=== PATIENT | female | born 1985 | race Caucasian/White ===

== ENCOUNTER 2017-03-15 10:50 | Inpatient (IN) | payer BC, OTHER ==
[~2017-03-15] VITALS: Ht 170.2 cm; Wt 104.3 kg
[2017-03-15] MEDS ORDERED: ONDANSETRON 4 MG/2 ML VIAL IM PRN (15:00)
[2017-03-15] MEDS ORDERED: DICYCLOMINE HCL 20 MG TABLET PO PRN (15:00)
[2017-03-15] MEDS ORDERED: HYDROXYZINE PAMOATE 25 MG CAPSULE PO PRN (15:00)
[2017-03-15] MEDS ORDERED: LOPERAMIDE HCL 2 MG CAPSULE PO PRN ×2 (15:00)
[2017-03-15] MEDS ORDERED: BUPRENORPHINE HCL 2 MG TAB.SUBL SL PRN (15:00)
[2017-03-15] MEDS ORDERED: IBUPROFEN 600 MG TABLET PO PRN (15:00)
[2017-03-15] MEDS ORDERED: LORAZEPAM 1 MG TABLET PO PRN (15:00)
[2017-03-15] MEDS ORDERED: MAGNESIUM HYDROXIDE 30 ML LIQUID UDC PO PRN (15:00)
[2017-03-15] MEDS ORDERED: ONDANSETRON ODT 4 MG TAB.RAPDIS SL PRN (15:00)
[2017-03-15] MEDS ORDERED: MIRALAX 17 GM POWD.PACK PO PRN (15:00)
[2017-03-15] MEDS ORDERED: diphenhydrAMINE 50 MG CAPSULE PO PRN (15:00)
[2017-03-15] MEDS ORDERED: ACETAMINOPHEN 325 MG TABLET PO PRN (15:00)
[2017-03-15] MEDS ORDERED: METHOCARBAMOL 750 MG TABLET PO PRN (15:00)
[2017-03-15] MEDS ORDERED: MAG HYDROX/AL HYDROX/SIMETH 30 ML LIQUID UDC PO PRN (15:00)
--- NOTE | 2017-03-15 15:30 | NUR ---
Intake Assessment; Patient is a 31 year old female presented to [facility] to detoxify from Heroin and Methamphetamine. Patient flew in from [place] and arrived at intake office at approximately 1500. Patient appears agitated and irritable. Patient has a flat affect and somewhat cooperative. Patient denies any allergies or history of seizures. Educated patient regarding unit protocols and policies. Will continue with further assessment when patient is up on the unit.
--- NOTE | 2017-03-15 16:00 | NUR ---
Admission note; Patient is a 31 year old female presented to [facility] to detoxify from Heroin and Methamphetamine. Patient flew in from [place] and arrived at intake office at approximately 1500. Patient appears agitated and irritable. Patient has a flat affect and somewhat cooperative. Patient denies any allergies or history of seizures. Educated patient regarding unit protocols and policies. Will continue with further assessment when patient is up on the unit. Patient is the primary source of information. Patient is admitted under the care of Dr. Alas to room 311. Admitting vital signs are as follows; 138/98, HR 98, Temperature of 98.2, respirations 18, SPO2 95% on room air, denies any pain, weight of 230lbs and height of 57. Educated patient regarding the importance of providing urine for urine drug screen, patient verbalized understanding. Discussed substance use history. Patient started using Heroin when she was 28 years old, patient unable to specify amount being used on a daily basis. Patient stated "I really don't know how many grams but I used a lot". Patient last used Heroin approximately 3-5 days ago. Patient started using methamphetamine starting December 2016, patient uses 2 grams /daily , last used on 03/14/17. Discussed medical and psych history. Patient reported that she was diagnosed with hypertension but was not treated. Patient recently had abscess I&D procedure on right foot, scab noted on right foot, site is dry and intact. Patient denies psychiatric disorders. During nursing assessment, patient avoids eye contact and unforthcoming with amount of substance use. Patient has been to treatment centers before ( [facility] and [facility] summer treatment). Patient does not have a primary care physician. Patient's current COWS score is 4. Skin check done with no significant findings. Safety measures in place. MD notified. Patient oriented to unit by RESEARCH STATISTICIAN. Will continue to monitor patient.
--- NOTE | 2017-03-15 18:25 | NUR ---
End of shift note; Patient is AOX4. Patient has not provided urine for UDS , educated patient regarding the importance of compliance to treatment and unit protocols, verbalized understanding. Encouraged patient to increase fluid intake, verbalized understanding. All safety measures secured. Met all needs.
--- NOTE | 2017-03-15 19:30 | NUR ---
START OF SHIFT Patient is a 31 year old female admitted for Heroin and Methamphetamine dependency. Patient denies history of seizures.A/O X 3 ,full code,regular diet,NKA.Patient's last COWS score = 4. Skin check done with no significant findings.PMH of HTN. Pt received resting in bed.Urine specimen provided and sent to lab for testing.Pt denies any s/s of withdrawals at this time.She did c/o anxiety.PRN meds offered but she is declining at this time,said "I feel anxious all the time". All safety measures in place;Bed is in low position and locked, side rails up x2, call light within reach. Will continue to monitor.
[2017-03-15 20:00] VITALS: BP 160/113
[2017-03-15 20:22] LABS: *URINE HCG, QUAL NEGATIVE (NEGATIVE)
[2017-03-15 20:34] LABS: *AMPHETAMINE, URINE POSITIVE (NEGATIVE); *BARBITURATE, URINE NEGATIVE (NEGATIVE); *CANNABINOID, URINE NEGATIVE (NEGATIVE); *COCCAINE, URINE NEGATIVE (NEGATIVE); *OPIATE, URINE POSITIVE (NEGATIVE); *PHENCYCLIDINE SCREEN,URINE NEGATIVE (NEGATIVE)
[2017-03-15] MEDS: CLONIDINE HCL 0.1 MG TABLET PO PRN ×2 (20:47→20:49)
[2017-03-15] MEDS ORDERED: CLONIDINE HCL 0.1 MG TABLET ONE (20:49)
--- NOTE | 2017-03-15 20:50 | NUR ---
PRN CLONIDINE GIVEN ORDERED FOR B/P OF 160/113.WILL MONITOR FOR EFFECTIVENESS.
--- NOTE | 2017-03-15 21:50 | NUR ---
B/P RECHECKED.B/P=121/82;HR=72.
[2017-03-15 23:08] LABS: EOSINOPHILS # (AUTO) 0.1 K/uL (0.0-0.7); EOSINOPHILS % (AUTO) 1.1 % (0.0-7.0)
[2017-03-15 23:14] LABS: BASOPHILS % (AUTO) 0.6 % (0.0-2.0); HEMOGLOBIN 12.3 G/DL (12.0-16.0); LYMPHOCYTES # (AUTO) 2.8 K/UL (0.8-4.8); LYMPHOCYTES % (AUTO) 36.1 % (20.5-51.5); MEAN CORPUSCULAR HEMOGLOBIN 23.7 UUG (27.0-31.0); MEAN CORPUSCULAR HGB CONC 32 g/dL (32.0-37.0); MEAN CORPUSCULAR VOLUME 74.9 FL (81.0-99.0); MONOCYTES # (AUTO) 0.6 K/UL (0.1-1.30); MONOCYTES % (AUTO) 7.9 % (0.0-11.0); NEUTROPHILS # (AUTO) 4.4 K/UL (1.8-8.9); NEUTROPHILS % (AUTO) 54.3 % (38.5-71.5); PLATELET COUNT (AUTO) 279 K/UL (150-450); RED BLOOD CELL COUNT(AUTO) 5.21 MIL/UL (4.2-5.4); WHITE BLOOD COUNT (AUTO) 7.9 K/UL (4.0-11.2)
[2017-03-15 23:29] LABS: THYROID STIMULATING HORMONE 2.059 mIU/mL (0.358-3.740)
[2017-03-16] VITALS: BP 132/86
[2017-03-16 00:02] LABS: ALANINE AMINOTRANSFERASE 36 U/L (14-59); ALKALINE PHOSPHATASE 53 U/L (50-136); ASPARTATE AMINOTRANSFERASE 44 U/L (15-37); CARBON DIOXIDE 29 mmol/L (21-32); CHLORIDE 101 mmol/L (98-107); CREATININE 0.8 mg/dL (0.6-1.3); GLUCOSE 107 mg/dL (74-106); MAGNESIUM 1.6 mg/dL (1.8-2.4); TOTAL PROTEIN, SERUM 7.7 g/dL (6.4-8.2); UREA NITROGEN, BLOOD 12 mg/dL (7-18)
[2017-03-16 00:16] LABS: ETHANOL < 3 MG/DL (0-0)
[2017-03-16 00:17] LABS: POTASSIUM 2.4 mmol/L (3.5-5.1)
[2017-03-16] MEDS ORDERED: POTASSIUM CHLORIDE 20 MEQ TAB.PRT.SR PO ONE ×4 (00:30→21:00)
[2017-03-16] MEDS ORDERED: MAGNESIUM OXIDE 400 MG TABLET PO ONE ×2 (00:30→21:00)
--- NOTE | 2017-03-16 00:35 | NUR ---
RECEIVED CRITICALLY LOW POTASSIUM LAB VALUE AT 2.4 AND LOW MAGNESIUM LEVEL OF 1.6; NOTIFIED.NEW ORDERS NOTED AND CARRIED OUT.
[2017-03-16 04:00] VITALS: BP 112/67
--- NOTE | 2017-03-16 06:39 | NUR ---
END OF SHIFT Patient is a 31 year old female admitted for Heroin and Methamphetamine dependency. Patient denies history of seizures.A/O X 3 ,full code,regular diet,NKA.Patient's last COWS score = 1. PMH of HTN.PRN Clonidine was given for elevated B/P and it was effective.Potassium and Magnesium were given due to low levels.Pt denies any s/s of withdrawals at this time.She did c/o anxiety.PRN meds offered but she refused to take any.Pt slept 6 hrs hrs,fluid intake was 500 mls;voided x 2 . All safety measures in place;Bed is in low position and locked, side rails up x2, call light within reach. Will continue to monitor.
--- NOTE | 2017-03-16 07:00 | NUR ---
Start of Shift Notes: Received patient in her room. Alert and oriented x 4. Verbally responsive. Able to make needs known. Respirations even and unlabored. No SOB noted. Skin warm and dry to touch. Abdomen soft and non-distended with (+) BS in all 4 quadrants. No complains of N/V/D or constipation noted. Bladder non-distended. NO complains of dysuria. Ambulatory ad opal with steady gait. Patient is a 31 year old female admitted for opiate and methamphetamine dependence. Prior to admission, patient was using heroin "unknown amount" of heroin and 2 grams of methamphetamine daily. Placed on PRNs at this time. Has past medical hx of HTN and right foot abscess. Educated patient on her current plan of care for the day and her medication regimen. Encouraged oral fluid intake and encouraged group participation to learn new skills to prevent relapse. All needs met and attended. WIll continue to monitor closely.
[2017-03-16 08:00] VITALS: BP 129/86
[2017-03-16] MEDS: MULTIVITAMINS,THERAPEUTIC TABLET PO SCH (08:31)
--- NOTE | 2017-03-16 08:37 | NUR ---
COWS 2: COWS 2. Patient denies any complains of chills, hot flashes, anxiety, muscle aches and pains as well as restlessness.
[2017-03-16 08:57] LABS: CREATININE 0.7 mg/dL (0.6-1.3); MAGNESIUM 1.8 mg/dL (1.8-2.4)
[2017-03-16] MEDS ORDERED: TUBERCULIN,PURIF.PROT.DERIV. 5 TU/0.1 ML TEST ID ONE (09:00)
--- NOTE | 2017-03-16 09:39 | NUR ---
Therapist prompted client about group times. Client reported she probably won't go today because she does not feel well.
--- NOTE | 2017-03-16 10:00 | NUR ---
Potassium level: Patient's potassium level 3.0L. Notified MD. Medicated patient with KCL 40 mEq as ordered. No s/s of hypokalemia noted.
[2017-03-16 12:00] VITALS: BP 137/81
[2017-03-16 16:00] VITALS: BP 137/81
[2017-03-16] MEDS: buPROPion XL 150 MG TAB.SR.24H PO SCH (16:04)
--- NOTE | 2017-03-16 18:52 | NUR ---
End of Shift Notes: Patient continues to be on close monitoring for opiate and methamphetamine withdrawal. Continues to be on PRN for symptom management. VS monitored closely q 4 hours. No significant abnormalities noted. BP monitored closely due to hx of HTN. No s/s of hypo/HTN noted. Withdrawal symptoms monitored q 4 hours. Initial COWS 2, last COWS 2. Patient requires encouragement to participate in group and therapy sessions. Affect is flat and requires encouragement to socialize with her peers. Potassium 3.0L, notified MD and medicated patient with KcL 40 mEq PO as ordered. No s/s of hypokalemia noted. Compliant with care and treatment. Safety precautions in place. All needs met and attended. Will continue to monitor closely.
[2017-03-16 20:00] VITALS: BP 143/90
--- NOTE | 2017-03-16 20:00 | NUR ---
1999 Patient received awake and lying quietly in her bed watching television. Patient responds to nurse's greeting and introduction with a flat-inflected, " Hello, I'm okay I guess. I'm thinking a lot about stuff". Patient is oriented to person, place, day, date and her personal situation. Reoriented to time. Patient's color is pink and her skin is warm, very slightly moist and intact. Lung sounds are clear, though slightly diminished in bases bilaterally and active bowel sounds are noted X 4 abdominal Quads, per auscultation. Vital signs are: 97.9-90-16 143/90, O2 Sat 98%, COWS 3. Patient states that she has not attended any [facility] groups yet and that she will do that when her clean clothes are delivered back to her tomorrow, here on [facility] floor. Patient offers no requests or c/o of anything specific, however she talks to nurse extensively about her boyfriend, her addiction, her anxiety and "all kinds of thoughts that are going through my head". Patient allowed to ventilate her feelings and calm reassurances and positive encouragement given to her as needed. Patient states that she has just been resting in her room, but she has been eating her regular diet trays and taking fluids ad opal since her admission. Patient was admitted on 03/15/17 for Heroin and Methamphetamine withdrawal and she is currently on PRN medications only for withdrawal symptoms. Bed is locked and in lowest position, bed rails are up X 1 and call light within patient's easy reach.
[2017-03-16] MEDS: QUETIAPINE FUMARATE 200 MG TABLET PO SCH (21:05)
--- NOTE | 2017-03-16 21:06 | NUR ---
PRN MEDICATIONS: Prn Immodium 4 mg p.o. given per c/o non-observed loose stools. Patient states, " I don't know why I had those earlier". Prn Vistaril 50 mg p.o. given per c/o "lots of anxiety and thinking about everything". Prn Motrin 600 mg p.o. given per c/o "body aches and pains, maybe a 4 or 5" ( 1/10 pain scale).
--- NOTE | 2017-03-16 21:07 | NUR ---
PRN MEDICATION: Prn Zofran 0.4 mg SL given per c/o " maybe feeling some nausea now".
--- NOTE | 2017-03-16 22:07 | NUR ---
REASSESSMENT PRN MEDICATIONS: Patient is sleeping in -like position of comfort, with eyes closed and respirations quiet, even, unlabored at 12.
--- NOTE | 2017-03-17 | NUR ---
Patient refused to be awakened for V/S to be done at this time.
[2017-03-17 04:00] VITALS: BP 138/89
--- NOTE | 2017-03-17 04:00 | NUR ---
V/S are: 97.7-86-12 138/89 O2 Sat 98%, COWS 2.
--- NOTE | 2017-03-17 06:30 | NUR ---
0630 Patient slept a total of 6.5 hours and she had 2 voids and 3 stools. Total intake p.o. was 1,210 ml . Prn medications given noted separately per floor protocol. V/SS afebrile, last COWS 2 at 0400. Patient is presently sleeping soundly with eyes closed and respirations quiet, even, unlabored at 14.
--- NOTE | 2017-03-17 07:33 | NUR ---
Start of shift note; Received report from restaurant shift leader. Patient is a 31 year old female admitted on 03/15/17 for Opiate/Methamphetamine dependence. Patient is currently on PRN medications. Patient reported history of hypertension. Patient's last COWS score is 2 per night nurse endorsement. Patient slept for 6 hours. Patient's potassium was supplemented yesterday. Will continue to monitor patient.
[2017-03-17 08:00] VITALS: BP 95/55
[2017-03-17 08:13] LABS: CREATININE 0.7 mg/dL (0.6-1.3); PHOSPHOROUS 4.1 mg/dL (2.5-4.9); POTASSIUM 3.3 mmol/L (3.5-5.1)
[2017-03-17] MEDS: MULTIVITAMINS,THERAPEUTIC TABLET PO SCH (08:43)
[2017-03-17] MEDS: buPROPion XL 150 MG TAB.SR.24H PO SCH (08:43)
[2017-03-17] MEDS: POTASSIUM CHLORIDE 20 MEQ TAB.PRT.SR PO SCH ×2 (10:41→20:53)
--- NOTE | 2017-03-17 10:47 | NUR ---
Potassium supplement; Patient's Potassium level is 3.3, MD order potassium supplement 40meq, medication given as ordered. Will continue to monitor patient.
[2017-03-17 12:00] VITALS: BP 111/64
[2017-03-17 12:08] LABS: HEPATITIS B SURFACE AG Negative (Negative)
[2017-03-17] MEDS ORDERED: BUPR-96 PO (14:08)
[2017-03-17] MEDS ORDERED: MUPI22OI2 NS (14:09)
[2017-03-17] MEDS ORDERED: HYDR-3895 PO (14:09)
[2017-03-17] MEDS ORDERED: IBUP-1955 PO (14:09)
[2017-03-17] MEDS ORDERED: METH-406 PO (14:09)
[2017-03-17] MEDS ORDERED: QUET200T PO (14:09)
[2017-03-17] MEDS ORDERED: DICY20TA28 PO (14:09)
--- NOTE | 2017-03-17 14:10 | NUR ---
MD communication; MD notified of patient's Hep C antibodies result and MRSA nares results. MD ordered isolation precautions and Bactroban 2% ointment on both nares Q12H. Patient was educated by MD regarding MRSA and Hep C. Isolation precautions observed.
[2017-03-17] MEDS: MUPIROCIN 2% OINT 22 GM TUBE NS SCH ×2 (14:15→20:54)
[2017-03-17 16:00] VITALS: BP 136/87
--- NOTE | 2017-03-17 18:12 | NUR ---
End of shift note; Patient is AOX4. Patient remained compliant with treatment plan and medication regime. Patient's last COWS score is 2. Isolation precaution observed due to MRSA nares. Potassium was supplemented. Patient's vital signs remained within normal limits. No PRN medications given. Patient is on fall precautions. Bed in lowest position, call light within reach. Met all needs.
--- NOTE | 2017-03-17 18:12 | NUR ---
START OF SHIFT NOTE: Patient endorsed by day shift nurse. Report received. Patient is a 31 year old female admitted to [facility] on under the care of Doctor Evette, Terrell Zarate MD for Opioid and Methamphetamine dependence, placed on PRN' s. Patient tolerated well. Patient remains compliant with treatment, medications, and diet regime. Patient reports NKA. Patient placed on Full Code, Regular Diet, Isolation for MRSA's nares and Fall Precautions. Patients denies Seizures Hx r/t withdrawal from substances. COWS 7. The patient presented with anxiety, agitation, nervousness, tremors, diaphoresis, abdominal cramps, restless legs, headache, body aches, insomnia and fatigue. Patient denies SI/HI. Patient reports the following substances use: Heroin IV: Patient reports taking "unknown amount" every day since 2013". Last use "unknown amount" on 03/14/17". Methamphetamine: "26 grams every day since December,". Last use "26 grams on 03/14/17". Patient reports treatment history: "[facility]" and "[facility]". Past Medical History: Anxiety, Depression, HTN, Right Foot abscess (dry and intact with scab), Substance Abuse. Upon endorsement, patient is in his room AOx4, ambulatory with steady gate, stable, speech is soft and clear. VSWNL. Respirations unlabored and even. Lungs Sounds are clear bilaterally. Bowel Sounds active in all x4 quadrants. Last Bowel Movement was "03/17/17 at 1800". Skin is warm and dry to touch. Patient has Right foot healed, dry, not open abscesses. Encouraged fluids as tolerated. Patient verbalized understanding. Safety measures on place. Call light within reach, bed in lowest position and locked, padded rails up bilaterally rails up bilaterally. Will continue to monitor closely.
[2017-03-17 20:00] VITALS: BP 106/67
[2017-03-17] MEDS: QUETIAPINE FUMARATE 200 MG TABLET PO SCH (20:54)
[2017-03-18] VITALS (7 sets, daily range): BP systolic 110–160; BP diastolic 54–102
[2017-03-18] MEDS ORDERED: diphenhydrAMINE 25 MG CAP PO PRN ×2 (00:30)
--- NOTE | 2017-03-18 00:33 | NUR ---
PRN BENADRYL PO ADMINISTRATION Patient c/o insomnia. Patient was assessed. VS WNL. PRN Benadryl PO was discussed. Patient educated for actions, adverse reactions and side effects of Benadryl. Patient returned back his knowledge by verbalizing understanding. PRN Benadryl 50 mg 1 caps. PO administrated as ordered with full glass of water. Patient tolerated well. Will reassessing in one hour. All needs met. Safety measures on the place: Call light within reach, bed is low position, and locked, side rails up x2. Will continue to monitor closely.
[2017-03-18] MEDS ORDERED: diphenhydrAMINE 50 MG CAPSULE ONE (00:40)
--- NOTE | 2017-03-18 01:33 | NUR ---
RE-ASSESSMENT Patient is sleeping. RR 14. Respirations are even and unlabored. PRN Benadryl PO was effective. All needs met. Safety measures on the place: Call light within reach, bed is low position, and locked, side rails up x2. Will continue to monitor closely.
--- NOTE | 2017-03-18 06:55 | NUR ---
END OF SHIFT NOTE: Patient endorsed to day shift nurse in stable condition. Report given. Patient is a 31 year old female admitted to [facility] on 03/15/2017 under the care of Doctor Evette, Terrell Zarate MD for Opioid and Methamphetamine dependence, placed on PRN' s. Patient tolerated well. Patient remains compliant with treatment, medications, and diet regime. Patient reports NKA. Patient placed on Full Code, Regular Diet, Isolation for MRSA's nares and Fall Precautions. Patients denies Seizures Hx r/t withdrawal from substances. Past Medical History: Anxiety, Depression, HTN, Right Foot abscess (dry and intact with scab), Substance Abuse: Heroin and Methamphetamine. Last COWS 2 at 0400. During lieutenant shift supervisor patient presented with anxiety, agitation, nervousness, tremors, diaphoresis, abdominal cramps, restless legs, headache, body aches, insomnia and fatigue. Patient denies SI/HI. VS at 0400: T: 98'2; BP: 125/81; HR: 79; RR: 20; O2 SAT: 96%, pain level:"0/10". Respirations unlabored and even. Skin is warm and dry to touch. Patient has Right foot healed, dry, not open abscesses. Encouraged fluids as tolerated. PRN Motrin PO and PRN Benadryl PO were effective. Patient slept 6 hours 45 minutes, intake 1,861 ml, voided x3. Safety measures on place. Call light within reach, bed in lowest position and locked, padded rails up bilaterally rails up bilaterally.
--- NOTE | 2017-03-18 07:00 | NUR ---
Start of Shift Notes: Received patient in her room. Alert and oriented x 4. Verbally responsive. Able to make needs known. Respirations even and unlabored. No SOB noted. Skin warm and dry to touch. Abdomen soft and non-distended with (+) BS in all 4 quadrants. No complains of N/V/D or constipation noted. Bladder non-distended. NO complains of dysuria. Ambulatory ad opal with steady gait. Patient is a 31 year old female admitted for opiate and methamphetamine dependence. Prior to admission, patient was using heroin "unknown amount" of heroin and 2 grams of methamphetamine daily. Placed on PRNs at this time. Has past medical hx of HTN and right foot abscess. On contact isolation due to MRSA nares. Isolation precautions in place. Educated patient on her current plan of care for the day and her medication regimen. Encouraged oral fluid intake and encouraged group participation to learn new skills to prevent relapse. All needs met and attended. WIll continue to monitor closely.
[2017-03-18 08:24] LABS: CREATININE 0.7 mg/dL (0.6-1.3); POTASSIUM 3.7 mmol/L (3.5-5.1)
[2017-03-18] MEDS: CLONIDINE HCL 0.1 MG TABLET PO PRN (08:47)
[2017-03-18] MEDS: MULTIVITAMINS,THERAPEUTIC TABLET PO SCH (08:47)
[2017-03-18] MEDS: buPROPion XL 150 MG TAB.SR.24H PO SCH (08:47)
[2017-03-18] MEDS: MUPIROCIN 2% OINT 22 GM TUBE NS SCH ×2 (08:47→21:00)
--- NOTE | 2017-03-18 08:47 | NUR ---
Clonidine 0.1mg PO given: Patient's BP 160/102, Pulse 70. BP taken on left arm while patient is at rest. Denies any complains of headache, dizziness, blurred vision nor chest discomfort or pain. Patient states "I feel OK." Medicated patient with Clonidine 0.1mg PO as ordered for elevated BP. Encouraged relaxation techniques. Safety environment in place.
--- NOTE | 2017-03-18 09:47 | NUR ---
Re-assessment: Patient's BP 144/82, Pulse 73. BP taken on left arm while patient is at rest. Denies any complains of headache, dizziness, blurred vision nor chest discomfort or pain. Patient states "I feel OK." PRN Clonidine was effective in reducing patient's BP. Encouraged relaxation techniques. Safety environment in place.
[2017-03-18] MEDS ORDERED: POTASSIUM CHLORIDE 10 MEQ CAPSULE.SA PO ONE (11:00)
--- NOTE | 2017-03-18 11:12 | NUR ---
KcL 30 meQ po given: Patient's K level 3.7. Verified with MD Alas that patient is to receive another 30 mEq PO as ordered. No s/s of hypo/hyperkalemia noted.
[2017-03-18 14:04] LABS: *AMPHETAMINE, URINE NEGATIVE (NEGATIVE); *BARBITURATE, URINE NEGATIVE (NEGATIVE); *CANNABINOID, URINE NEGATIVE (NEGATIVE); *COCCAINE, URINE NEGATIVE (NEGATIVE); *OPIATE, URINE NEGATIVE (NEGATIVE); *PHENCYCLIDINE SCREEN,URINE NEGATIVE (NEGATIVE)
--- NOTE | 2017-03-18 18:51 | NUR ---
START OF SHIFT NOTE: Patient endorsed by day shift nurse. Report received. Patient is a 31 year old female, admitted to [facility] on 03/15/17 for Opioid and Methamphetamine dependence under the care of Terrell Dumont MD, and continue PRN Medications for symptoms management. Patient tolerated well without ASE. Patient remains complains with treatment plan, medications, and diet regime. Patient reports NKA. Patient placed on Full Code, Regular Diet, Isolation for MRSA's nares and Fall Precautions. Patients denies Seizures Hx r/t withdrawal from substances. Past Medical History: Anxiety, Depression, HTN, Right Foot abscess (dry and intact with scab), Substance Abuse: Heroin and Methamphetamine. Upon endorsement patient in the room alert and oriented x4, speech is soft. Patient is cooperative. Last COWS 1 at 1900. Patient presented with mild anxiety. Patient denies SI/HI. VS WNL. Respirations unlabored and even. Patient denies SOB and chest pain. Lungs Sounds are clear thoroughly. Bowel Sounds active in all four quadrants. Skin is warm and dry to touch. Patient has Right foot healed, dry, not open abscesses. Encouraged fluids as tolerated. Patient attended groups activities. Patient scheduled discharging tomorrow by Terrell Dumont MD's order. UDS labs results placed in chart. All needs met. Safety measures on place. Call light within reach, bed in lowest position and locked, padded rails up bilaterally rails up bilaterally. Will continue to monitor closely.
--- NOTE | 2017-03-18 18:51 | NUR ---
End of Shift Notes: Patient continues to be on close monitoring for opiate and methamphetamine withdrawal. Continues to be on PRN for symptom management. VS monitored closely q 4 hours. No significant abnormalities noted. BP monitored closely due to hx of HTN. No s/s of hypo/HTN noted. Medicated patient with Clonidine 0.1mg PO at 0847 due to elevated BP with effect after 1 hour. Denies any complains of chest pain or discomfort noted. Withdrawal symptoms monitored q 4 hours. Initial COWS 1, last COWS 1 due to anxiety. Continues to be on contact isolation due to MRSA of the nares. Compliant with care. No runny nose, cough or congestion noted. Additional KcL 30 mEq PO as ordered. No s/s of hypokalemia/hyperkalemia noted. Patient with discharge plans tomorrow. UDS in and resulted. Compliant with care and treatment. Safety precautions in place. All needs met and attended. Will continue to monitor closely.
[2017-03-18] MEDS: QUETIAPINE FUMARATE 200 MG TABLET PO SCH (21:00)
[2017-03-19] VITALS: BP 122/77
[2017-03-19 04:00] VITALS: BP 112/68
--- NOTE | 2017-03-19 06:54 | NUR ---
END OF SHIFT NOTE: Patient endorsed to day shift nurse in stable condition. Report given. Patient is a 31 year old female admitted to [facility] on 03/15/2017 under the care of Terrell Dumont MD for Opioid and Methamphetamine dependence, placed on PRN' s for symptoms management. Patient remains compliant with treatment, medications, and diet regime. Patient reports NKA. Patient placed on Full Code, Regular Diet, Isolation for MRSA's nares and Fall Precautions. Patients denies Seizures Hx r/t withdrawal from substances. Past Medical History: Anxiety, Depression, HTN, Right Foot abscess (dry and intact with scab), Substance Abuse: Heroin and Methamphetamine. Last COWS 1 at 0400. Patient denies SI/HI. VS at 0400: T: 97.8; BP: 112/68; HR: 72; RR: 18; O2 SAT: 98%, pain level:"0/10". Respirations unlabored and even. Skin is warm and dry to touch. Patient has Right foot healed, dry, not open abscesses. Encouraged fluids as tolerated. Patient scheduled discharging today, on 03/19/2017 per Doctor Terrell Alas MD's order. UDS labs results placed in chart. Patient slept 8 hours, intake 1,147 ml, voided x2. All needs met. Safety measures on place. Call light within reach, bed in lowest position and locked, padded rails up bilaterally rails up bilaterally.
--- NOTE | 2017-03-19 07:19 | NUR ---
Start of shift note; Received report from caustic cresylate shift superintendent. Patient is a 31 year old female admitted on 03/15/17 for Opiate/Methamphetamine dependence. Patient is currently on PRN medications. Patient reported history of hypertension. Patient's last COWS score is 1 per night nurse endorsement. Patient slept for 5 hours. Patient's potassium was supplemented, current Potassium level is 3.7. Patient is scheduled for discharge today. Will continue to monitor patient.
[2017-03-19] MEDS: MUPIROCIN 2% OINT 22 GM TUBE NS SCH (08:07)
[2017-03-19] MEDS: buPROPion XL 150 MG TAB.SR.24H PO SCH (08:07)
[2017-03-19] MEDS: MULTIVITAMINS,THERAPEUTIC TABLET PO SCH (08:07)
[2017-03-19 08:48] VITALS: BP 101/60
--- NOTE | 2017-03-19 09:11 | NUR ---
Discharge note; Patient is AOX4. Patient is medically cleared for discharge to be transferred to [facility]. Patient completed taper. Patient currently denies pain, denies suicidal ideations. All valuables, belongings and prescriptions given to patient. Patient left the hospital on 03/19/17 at 0911. Patient left the hospital in a stable condition. Met all needs.
== END 2017-03-19 09:19 | disposition other institution (70) | DRG 895 ==
LOC: SRC 14:38
PROVIDERS: ADMIT Internal Medicine; ATTEND Internal Medicine
PROC: HZ2ZZZZ Detoxification Services for Substance Abuse Treatment (ICD-10-PCS; principal; 2017-03-15)
PROC: HZ31ZZZ Individual Counseling for Substance Abuse Treatment, Behavioral (ICD-10-PCS; 2017-03-16)
DX: F11.23 Opioid dependence with withdrawal (principal); F33.3 Major depressive disorder, recurrent, severe with psychotic symptoms; F15.23 Other stimulant dependence with withdrawal; F41.9 Anxiety disorder, unspecified; B19.20 Unspecified viral hepatitis C without hepatic coma; Z82.49 Family history of ischemic heart disease and other diseases of the circulatory system; Z81.3 Family history of other psychoactive substance abuse and dependence; E83.42 Hypomagnesemia; E87.6 Hypokalemia; Z22.322 Carrier or suspected carrier of Methicillin resistant Staphylococcus aureus; I15.9 Secondary hypertension, unspecified; F17.200 Nicotine dependence, unspecified, uncomplicated
CPT/HCPCS: 36415; 80307; 80324; 80361; 83735; 84100; 84443; 84703; 85025; 86580; 86592; 86705; 86803; 87340; 87806; G0480; Q0162; Q0163